=== PATIENT | female | born 1945 ===

== ENCOUNTER 2018-07-14 10:44 | Emergency (ER) | payer MEDICARE ==
[2018-07-14 10:52] VITALS: BMI 29.2
[2018-07-14 10:55] VITALS: BP 157/73; PULSE 83; RESP 18; TEMP 97.8; O2SAT 96
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
== END 2018-07-14 12:26 | disposition home or self-care (01) ==
LOC: C.ER 10:44
DX: M54.31 Sciatica, right side (principal); I10 Essential (primary) hypertension

== ENCOUNTER 2018-11-25 11:27 | Emergency (ER) | payer MEDICARE ==
[2018-11-25 11:27] VITALS: BMI 29.2
[2018-11-25 11:32] VITALS: RESP 20; O2SAT 95
--- NOTE | 2018-11-25 13:15 | RAD ---
Date of service: 11/25/2018 PROCEDURE: Radiographs of the Right Shoulder HISTORY: injury COMPARISON: No prior. TECHNIQUE: 3 views obtained. FINDINGS: BONES: Curvilinear ossific density adjacent to the inferior margin of the glenoid. This could represent a glenoid avulsion injury. No other fracture identified. JOINTS: Mild acromioclavicular degenerative arthritis. Glenohumeral articulation intact. SOFT TISSUES: Normal. OTHER FINDINGS: None. IMPRESSION: Mild acromioclavicular degenerative arthritis. Curvilinear ossific density along the inferior margin of the glenoid, possibly representing an acute avulsion injury. Please correlate with any history of recent dislocation.
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
[2018-11-25 13:54] VITALS: BP 136/75; PULSE 88; TEMP 97.7
== END 2018-11-25 14:10 | disposition home or self-care (01) ==
LOC: C.ER 11:27
DX: S49.91XA Unspecified injury of right shoulder and upper arm, initial encounter (principal); W01.0XXA Fall on same level from slipping, tripping and stumbling without subsequent striking against object, initial encounter; Y92.410 Unspecified street and highway as the place of occurrence of the external cause; R42 Dizziness and giddiness

== ENCOUNTER 2018-11-27 15:09 | Outpatient (CLI) | payer MEDICARE | END 2018-11-27 15:10 | disposition home or self-care (01) | LOC: C.MRIC 15:09 ==